=== PATIENT | female | born 2000 | race Hispanic/Latino ===

== ENCOUNTER → 2024-11-13 | Outpatient (CLI) | payer BC, SELFPAY ==
[2024-11-13 13:01] LABS: Basophil# 0.04 X10^3/uL; Basophil% 0.8 % (0-1); Eosinophil# 0.34 X10^3/uL; Eosinophils% 6.7 % (0-5); Hematocrit 34.9 % (37-47); Hemoglobin 11.3 g/dL (12.0-15.0); Mean Corp Hgb Conc 32.4 g/dL (32-36); Mean Corpuscular Hgb 24.6 pg (27.0-32.0); Mean Platelet Vol. 9.1 fl (6.2-12.0); Monocyte# 0.39 X10^3/uL; Monocyte% 7.6 % (0-10); NRBC Flagged by Analyzer 0 % (0-5); Neutrophil # 2.04 X10^3/uL (2.7-7.7); Neutrophil % 39.9 % (47-70); POSITIVE MORPHOLOGY YES; Platelet Count 378 K/mm3 (150-450); RBC Distribution Width SD 44.2 fl (35.1-43.9); Red Blood Count 4.59 M/mm3 (4.2-5.4); White Blood Count 5.1 K/mm3 (4.4-11.0)
[2024-11-13 13:04] LABS: Differential Indicated SCAN CRITERIA MET
[2024-11-13 13:19] LABS: Hemoglobin A1c 5.8 % (<=5.6)
[2024-11-13 13:25] LABS: Differential Comment SCANNED
[2024-11-13 13:52] LABS: ALB/GLOB Ratio 1.2 RATIO (0.9-2.4); AST(SGOT) 22 U/L (<=31); Alanine Aminotransfer ALT/SGPT 16 U/L (<=34); Albumin, Serum 4.1 g/dL (3.5-5.0); Alkaline Phosphatase 79 U/L (35-104); Anion Gap 11 (5-15); BUN 9 mg/dL (4-19); BUN/Creat Ratio 14.4 RATIO (10-20); Calcium,Total 9.2 mg/dL (7.6-11.0); Carbon Dioxide 22.1 mmol/L (21.0-32.0); Chloride 105 mmol/L (98-108); Creatinine, Serum 0.63 mg/dL (0.70-1.20); EST Glomerular Filtration Rate 129 (>60); Ferritin 5 ng/mL (22-378); Globulin 3.5 g/dL (2.2-4.2); Glucose 92 mg/dL (70-99); Protein, Total 7.6 g/dL (5.9-8.4); Sodium Level 137 mmol/L (133-145); Total Bilirubin 0.25 mg/dL (0.00-1.30); Vitamin B12 379 pg/mL (180-914); Vitamin D,25 Hydroxy 21.1 ng/mL (30-100)
[2024-11-13 15:25] LABS: Iron 26 ug/dL (50-170); Iron Binding Capacity,Unsat 453 ug/dL (228-428); Magnesium 2.3 mg/dL (1.5-2.2)
[2024-11-13 16:25] LABS: Iron Binding Capacity,Total 479 ug/dL (250-450)
== END | disposition home or self-care (01) ==
LOC: VSLAB 09:42
PROVIDERS: PCP Family Medicine; Visit Provider Family Medicine
DX: D50.9 Iron deficiency anemia, unspecified (principal); R53.83 Other fatigue
CPT/HCPCS: 36415; 80053; 82306; 82607; 82728; 83036; 83540; 83550; 83735; 84443; 85025

== ENCOUNTER → 2025-03-13 | Outpatient (CLI) | payer BC, SELFPAY ==
--- NOTE | 2025-03-13 18:55 | CT_ITS ---
PROCEDURE: CT SINUS/FACIAL BONE 03/13/2025 REASON FOR EXAM: MIGRAINE WITHOUT AURA TECHNIQUE: CT SINUS/FACIAL BONE Coronal and Sagittal reconstruction series were provided. One or more dose reduction techniques were used (e.g., Automated exposure control, adjustment of the mA and/or kV according to patient size, use of iterative reconstruction technique). RADIATION DOSE SUMMARY: CTDlvol: 33.06 mGy DLP: 784.26 mGycm COMPARISON: None. FINDINGS: The paranasal sinuses are well-aerated without any significant inflammatory mucosal thickening or fluid levels. Nasal septum is midline. No mastoid or middle ear effusions. Intact skull base and visualized calvarium. The included intracranial contents, superficial soft tissues, and orbits are unremarkable. CT/Sinus/Facial Bone IMPRESSION: Normal exam. No paranasal sinus disease. Reading Location: [id number]
== END | disposition home or self-care (01) ==
LOC: CT 18:49
PROVIDERS: PCP Family Medicine
DX: G43.009 Migraine without aura, not intractable, without status migrainosus (principal)
CPT/HCPCS: 70486